=== PATIENT | female | born 1950 | race Two or more races ===

== ENCOUNTER 2017-01-21 12:05 | Emergency (ER) | payer MEDICARE, MEDICAID ==
[2017-01-21] VITALS (8 sets, daily range): BP systolic 120–151; BP diastolic 70–80
[~2017-01-21] VITALS: Ht 172.7 cm
[2017-01-21] MEDS ORDERED: Morphine Sulfate 10mg/ml Inj IVP ONE (12:30)
[2017-01-21] MEDS ORDERED: Propofol 10mg/ml 20ml IV ONE (13:15)
--- NOTE | 2017-01-21 14:11 | Emergency Room Report ---
History of Present Illness General Chief Complaint: Lower Extremity Injury Source: Patient Present Illness HPI 66 YO Female presents to the Emergency department complaining of 10 out of 10 in severity localized right ankle pain status post mechanical fall on the sidewalk one hour ago. She denies taking medications for her pain. Patient states she is swelling, tenderness and deformity to the right ankle denies pain in the foot or radiation of her pain. Patient states pain is worsened by weightbearing or palpation. Patient denies previous injury to the extremity. Denies numbness tingling or loss of sensation or gross motor movements of the extremity, incontinence of bowel or bladder. Denies CP, Palpitations, LOC, AMS, dizziness, Changes in Vision, Sensation, paresthesias, or a sudden severe headache. Allergies: Coded Allergies: CODEINE (Verified Allergy, Unknown, 01/21/17) Patient History Past Medical History: see triage record Past Surgical History: none Pertinent Family History: none Last Menstrual Period: n/a Now: No Immunizations: UTD Reviewed Nursing Documentation: PMH: Agreed, PSxH: Agreed Nursing Documentation-PMH Hx Hypertension: Yes Hx COPD: Yes - CHF Review of Systems All Other Systems: negative except mentioned in HPI Physical Exam Vital Signs Date Time Temp Pulse Resp B/P Pulse Ox O2 Delivery O2 Flow Rate FiO2 01/21/17 11:55 98.8 79 22 151/74 98 Room Air Sp02 EP Interpretation: reviewed, normal General Appearance: alert, GCS 15, non-toxic, moderate distress Head: normocephalic, atraumatic Eyes: bilateral eye PERRL, bilateral eye normal inspection ENT: hearing grossly normal, normal pharynx, no angioedema, normal voice Neck: full range of motion, supple/symm/no masses Respiratory: chest non-tender, lungs clear, normal breath sounds, speaking full sentences Cardiovascular #1: regular rate, rhythm, no edema, normal capillary refill Musculoskeletal: back normal, gait/station normal, normal range of motion, swelling, other - deformity to the right ankle, tender - ttp to medial and lateral right ankle, swelling noted, good capillary refill. Neurologic: alert, oriented x3, responsive, motor strength/tone normal, sensory intact, speech normal Psychiatric: judgement/insight normal, memory normal, mood/affect normal Skin: normal color, no rash, warm/dry, well hydrated Procedures Procedural Sedation Consent: Written Time out called at: 13:30 Pre-Sedation Assessment: Elective, Pre-proc Edu. done, Plan for Sedation Discuss Airway Assessment (Malampati): II Heart: normal Lungs: normal Abdomen: normal Extremities: normal Procedures/Plans: Closed Reduction Plan for Moderate Sedation: Propofol ASA Score: III Procedure Narrative - Single attempt to reduce right ankle bimalleolar fracture using manual traction. - Pt immediately placed into short leg posterior splint - Pt remained NVI prior and after reduction procedure. Start Time: 13:31 End Time: 13:33 Total Time: 0001 Mental Status: Awake Respiration: Unlabored Skin Condition: WNL Abdomen: WNL Nausea: NO Vomiting: NO Additional Comments: total procedure time was 1 minute, and 34 additional minutes of patient monitoring. Additional Procedure Procedure Narrative Verbal and written consent were obtained by pt. for closed reduction of fracture at the right ankle joint under procedural sedation. - Single attempt to reduce right ankle bimalleolar fracture using manual traction. - Pt immediately placed into short leg posterior splint - Pt remained NVI prior and after reduction procedure. -Post reduction images were obtained which show significant improvement in alignment. Medical Decision Making PA Attestation Dr. Le is my supervising Physician whom patient management has been discussed with. Diagnostic Impression: Primary Impression: Closed bimalleolar fracture of right ankle Qualified Codes: S82.841A - Displaced bimalleolar fracture of right lower leg , initial encounter for closed fracture ER Course 66 YO Female presents to the Emergency department complaining of 10 out of 10 in severity localized right ankle pain status post mechanical fall on the sidewalk one hour ago. She denies taking medications for her pain. Patient states she is swelling, tenderness and deformity to the right ankle denies pain in the foot or radiation of her pain. Patient states pain is worsened by weightbearing or palpation. Patient denies previous injury to the extremity. Denies numbness tingling or loss of sensation or gross motor movements of the extremity Ddx considered but are not limited to Fracture, dislocation, contusion, Sprain/ Strain/Spasm, Epidural abscess, Neoplastic mets. Vital signs: are WNL, pt. is afebrile H&PE are most consistent with musculoskeletal injury of the right ankle, will do imaging. ORDERS: - X-ray Right ankle 3 views - Positive for displaced bimalleolar fracture, positive dislocation and soft tissue swelling - per preliminary read in ED by Dr. Le - X-ray Post reduction Right ankle 2 views - improvement of angulation and reduction of dislocation, continued soft tissue swelling - per preliminary read in ED by Dr. Le ED INTERVENTIONS: - Morphine 6mg IM - IBU 600mg PO - Joint reduction performed under conscious sedation, and supervised by Dr. Le - short leg posterior Splint applied to the right LE by soil technician. Pt. remains neurovascularly intact. - Pt. provided with crutches. DISCHARGE: At this time pt. is stable for d/c to home. Will provide printed patient care instructions, and any necessary prescriptions. Care plan and follow up instructions have been discussed with the patient prior to discharge. Last Vital Signs Date Time Temp Pulse Resp B/P Pulse Ox O2 Delivery O2 Flow Rate FiO2 01/21/17 13:51 98.0 16 151/70 96 Nasal Cannula 01/21/17 13:24 70 70 Disposition: HOME, SELF-CARE Condition: Stable Scripts Ibuprofen* (MOTRIN*) 400 Mg Tablet 400 MG ORAL THREE TIMES A DAY, #20 TAB 0 Refills Prov: Ramila Chapa 01/21/17 Hydrocodone Bit/Acetaminophen 5-325* (NORCO 5-325*) 1 Each Tablet 1 TAB ORAL Q6H Y for For Pain, #10 TAB 0 Refills Prov: Ramila Chapa 01/21/17 Referrals: [facility] (PCP) Patient Instructions: Complex Ankle Fracture Additional Instructions: Take medications as directed. Follow up with [facility] in 3-5 days Return sooner to ED if new symptoms occur, or current symptoms become worse. Do not drink alcohol, drive, or operate heavy machinery while taking [place] as this may cause drowsiness. - Please note that this Emergency Department Report was dictated using [employer] cutlet maker technology software, occasionally this can lead to erroneous entry secondary to interpretation by the dictation equipment. Ramila Chapa Jan 21, 2017 14:11
[2017-01-21] MEDS ORDERED: NORCO 5-325 TA1 EACH ORAL (14:20)
[2017-01-21] MEDS ORDERED: IBUPROFEN400 MG ORAL (14:20)
--- NOTE | 2017-01-21 14:59 | Diagnostic Imaging Report ---
Indication: PAIN Technique: 3 views of the right ankle Comparison: none Findings: There is a complex fracture dislocation of the right ankle. The talus is dislocated laterally by one bone width. There is a fracture of the medial malleolus, which retains its relation with the talus, is displaced laterally. There is a severely angulated fracture of the distal fibula. Impression: Positive for complex right ankle fracture dislocation, as described
--- NOTE | 2017-01-21 15:18 | Diagnostic Imaging Report ---
Indication: PAIN Technique: 2 views of the right ankle Comparison: One hour earlier Findings: Interim closed reduction and splinting of previously demonstrated right ankle fracture dislocation. Markedly improved anatomic alignment. Overlying splint obscures bony detail Impression: Marked improved anatomic alignment of previously demonstrated right ankle fracture dislocation, status post closed reduction and splinting
== END 2017-01-21 15:47 | disposition home or self-care (01) ==
LOC: EDBD 12:05 → EMR 12:32
DX: S82.841A Displaced bimalleolar fracture of right lower leg, initial encounter for closed fracture (principal); W19.XXXA Unspecified fall, initial encounter; Y92.480 Sidewalk as the place of occurrence of the external cause; I50.9 Heart failure, unspecified; J44.9 Chronic obstructive pulmonary disease, unspecified; I10 Essential (primary) hypertension; Z88.6 Allergy status to analgesic agent
CPT/HCPCS: 27810; 73600; 73610; 96374; 96375; 99284; J2270; J2704